=== PATIENT | female | born 1985 | race American Indian/Alaskan Native ===

== ENCOUNTER 2018-03-19 14:31 | Inpatient (IN) | payer OTHER ==
[2018-03-19] MEDS ORDERED: BRETHINE SUB-Q PRN (14:40)
[2018-03-19] MEDS ORDERED: XYLOCAINE 2% INFILTRATI ONE (14:40)
[2018-03-19] MEDS ORDERED: BRETHINE IVP PRN (14:40)
[2018-03-19] MEDS ORDERED: MINERAL OIL PO PRN (14:40)
[2018-03-19] MEDS ORDERED: NARCAN 0.4 MG/1 ML IV PRN (14:40)
[2018-03-19] MEDS ORDERED: POLYCILLIN/NS 2 GM/100 ML 2 GM/100 ML BAG IV ONE (14:40)
[2018-03-19] MEDS ORDERED: ZOFRAN IV PRN (14:40)
[2018-03-19] MEDS ORDERED: PITOCin/NS 30 UNIT/500ML 30 UNITS/500 ML BAG IV SCH (15:00)
[2018-03-19] MEDS ORDERED: PITOCin/NS 20 UNIT/1000ML DRIP 20 UNITS/1,000 ML BAG IV SCH (15:00)
[2018-03-19] MEDS ORDERED: BENADRYL PO PRN (15:19)
[2018-03-19] MEDS ORDERED: NORCO 5/325 PO PRN (15:19)
--- NOTE | 2018-03-19 15:46 | History and Physical Report ---
History of Present Illness Date of examination: 03/19/18 Date of admission: 03/19/18 14:31 Chief complaint: Intense labor pains and my water broke at 1:50 today History of present illness: Late entry to care; course complicated by Anemia, Vitamin D Def, and O Negative blood type (received Rhogam on 12/25/17). Decreased cigarette smoking throughout , +HSV II (taking Valacyclovir suppression), + Gonorrhoea (treated and FLAVIA is Negative). Past History Past Medical History: no pertinent history Past Surgical History: VESSEL SLAGMAN/uterine surgery (EAB) VESSEL SLAGMAN History: gonorrhea, herpes, trichomonas Family/Genetic History: heart disease, hypertension, cancer Social history: no significant social history, single, smoking - Obstetrical History Expected Date of Delivery: 03/18/18 Actual Gestation: 40 Week(s) 1 Day(s) : 5 Para: 2 Hx # Term Pregnancies: 2 Induced : 2 Number of Living Children: 2 #2 Infant Gender: Male year: 2,[birth year] Birthweight: 2.976 kg Method of Delivery: Vaginal Gestational age at delivery: 40 #1 Infant Gender: Male year: 2,[birth year] Birthweight: 3.43 kg Method of Delivery: Vaginal Gestational age at delivery: 41 Complications: none Medications and Allergies Allergies Allergy/AdvReac Type Severity Reaction Status Date / Time No Known Allergies Allergy Verified 02/07/16 16:27 Home Medications Medication Instructions Recorded Confirmed Last Taken Type Ketorolac [Toradol] 10 mg PO Q6H PRN #20 tablet 02/08/16 Unknown Rx Active Meds: Active Medications Acetaminophen/Hydrocodone Bitart (Palmer 5/325) 2 each PO Q6H PRN PRN Reason: Pain, Moderate (4-6) Butorphanol Tartrate (Stadol) 2 mg IV Q2H PRN PRN Reason: Pain , Severe (7-10) Diphenhydramine HCl (Benadryl) 25 mg PO Q6H PRN PRN Reason: Itching Ephedrine Sulfate (Ephedrine Sulfate) 10 mg IV Q2M PRN PRN Reason: Hypotension Ampicillin Sodium (Ampicillin/Ns 1 Gm/50 Ml) 1 gm in 50 mls @ 100 mls/hr IV Q4HR KRYSTYNA; Protocol Lactated Ringer's (Lactated Ringers) 1,000 mls @ 125 mls/hr IV DIRECT KRYSTYNA Oxytocin/Sodium Chloride (Pitocin/Ns 20 Unit/1000ml Drip) 20 units in 1,000 mls @ 125 mls/hr IV DIRECT KRYSTYNA Oxytocin/Sodium Chloride (Pitocin/Ns 30 Unit/500ml) 30 units in 500 mls @ 4 mls /hr IV TITR KRYSTYNA; Protocol Ibuprofen (Motrin) 600 mg PO Q6H KRYSTYNA Mineral Oil (Mineral Oil) 30 ml PO QHS PRN PRN Reason: Constipation Multivitamins/Iron/Calcium ( Vitamin) 1 each PO QDAY KRYSTYNA Naloxone HCl (Narcan 0.4 Mg/1 Ml) 0.1 mg IV Q2MIN PRN PRN Reason: Res Rate </= 8 or 02 SAT < 92% Ondansetron HCl (Zofran) 4 mg IV Q8H PRN PRN Reason: Nausea And Vomiting Sodium Chloride (Sodium Chloride Flush Syringe 10 Ml) 10 ml IV PRN NR Stop: 03/20/18 15:59 Terbutaline Sulfate (Brethine) 0.25 mg SUB-Q ONCE PRN PRN Reason: Hyperstimulation/Hypertonicity Terbutaline Sulfate (Brethine) 0.25 mg IVP ONCE PRN PRN Reason: Hyperstimulation/Hypertonicity Review of Systems All systems: negative - Vital Signs Vital signs: Vital Signs Pulse BP 80 137/67 03/19/18 15:05 03/19/18 15:05 Temp Pulse Resp BP Pulse Ox 80 137/67 03/19/18 15:05 03/19/18 15:05 - Physical Exam Breasts: Positive: normal Cardiovascular: Regular rate Lungs: Positive: Clear to auscultation, Normal air movement Abdomen: Positive: normal appearance, soft, normal bowel sounds Genitourinary (Female): Positive: normal external genitalia, normal perenium Vagina: Positive: normal moisture Uterus: Positive: enlarged Anus/Rectum: Positive: normal perianal skin Extremities: Positive: edema (+2) - Obstetrical FHR: category 1 Uterine Contraction Monitor Mode: External Cervical Dilatation: 3 (leaking a moderate amount of thin meconium stained fluids) Cervical Effacement Percentage: 70 station: -2 Uterine Contraction Frequency (min): 1-3 Uterine Contraction Pattern: Regular Uterine Tone Measurement Phase: Resting Uterine Contraction Intensity: Moderate Results All other labs normal. Assessment and Plan A: IUP @ 40 1/7 Weeks Category I Tracing SROM GBS Positive P: Admit to L&D per Routine Orders GBS Prophylaxis Pitocin Augmentation
[2018-03-19] MEDS ORDERED: SODIUM CHLORIDE FLUSH SYRINGE 10 ML IV NR (16:00)
[2018-03-19] MEDS ORDERED: MOTRIN PO SCH (16:00)
[2018-03-19] MEDS: LACTATED RINGERS 1,000 ML IV SCH ×2 (16:30→23:54)
[2018-03-19] MEDS: STADOL IV PRN ×3 (16:30→22:22)
[2018-03-19 16:46] LABS: Hematocrit 33.9 % (30.3-42.9); Hemoglobin 11.9 gm/dl (10.1-14.3); Mean Corpuscular HGB Conc 35 % (30-34); Mean Corpuscular Hemoglobin 32 pg (28-32); Mean Corpuscular Volume 91 fl (79-97); Platelet Count 185 K/mm3 (140-440); Red Blood Count 3.74 M/mm3 (3.65-5.03); Red Cell Distribution Width 13.4 % (13.2-15.2)
--- NOTE | 2018-03-19 19:39 | Progress Note ---
Assessment and Plan A: IUP @ 40 1/7 Weeks Category I Tracing SROM GBS Positive P: Internals X2 Continue GBS Prophylaxis Continue Pitocin Augmentation Subjective - Subjective Date of service: 03/19/18 Interval history: Late entry to care; course complicated by Anemia, Vitamin D Def, and O Negative blood type (received Rhogam on 12/25/17). Decreased cigarette smoking throughout , +HSV II (taking Valacyclovir suppression), + Gonorrhoea (treated and FLAVIA is Negative). Patient reports: loss of fluid, movement normal, contractions Objective - Vital Signs Vital Signs: Vital Signs - 12hr 03/19/18 03/19/18 03/19/18 15:05 16:00 16:58 Temperature 98.7 F Pulse Rate 80 80 Respiratory Rate Blood Pressure 137/67 139/63 03/19/18 03/19/18 03/19/18 18:11 18:16 18:29 Temperature 98.8 F Pulse Rate 85 70 Respiratory 20 Rate Blood Pressure 125/74 142/60 03/19/18 03/19/18 18:59 19:29 Temperature Pulse Rate 81 77 Respiratory Rate Blood Pressure 119/67 138/83 - Exam Breasts: normal Cardiovascular: Regular rate Lungs: Clear to auscultation, Normal air movement Abdomen: Present: normal appearance, soft, normal bowel sounds Uterus: Present: normal, firm, fundal height above umbilicus FHR: category 1 Uterine Contraction Monitor Mode: Internal Cervical Dilatation: 3 (leaking a moderate amount of thin meconium stained fluids) Cervical Effacement Percentage: 70 station: -2 Uterine Contraction Frequency (min): 2-5 Uterine Contraction Pattern: Irregular Uterine Tone Measurement Phase: Resting Uterine Contraction Intensity: Moderate Extremities: normal - Labs Labs: Abnormal Labs 03/19/18 16:21 MCHC 35 H Laboratory Results - last 24 hr 03/19/18 03/19/18 16:21 16:30 WBC 7.5 RBC 3.74 Hgb 11.9 Hct 33.9 MCV 91 MCH 32 MCHC 35 H RDW 13.4 Plt Count 185 Blood Type O NEGATIVE Antibody Screen Negative
[2018-03-19] MEDS: AMPICILLIN/NS 1 GM/50 ML 1 GM/50 ML BAG IV SCH (20:59)
[2018-03-20] MEDS: LACTATED RINGERS 1,000 ML IV SCH ×5 (00:37→11:06)
[2018-03-20] MEDS: AMPICILLIN/NS 1 GM/50 ML 1 GM/50 ML BAG IV SCH ×2 (00:38→04:38)
[2018-03-20] MEDS: STADOL IV PRN ×2 (01:19→04:44)
[2018-03-20 03:17] LABS: Hematocrit 35.2 % (30.3-42.9); Hemoglobin 11.9 gm/dl (10.1-14.3)
[2018-03-20] MEDS ORDERED: PEPCID IV ONE (06:31)
[2018-03-20] MEDS ORDERED: BICITRA PO ONE (06:31)
[2018-03-20] MEDS ORDERED: REGLAN IV ONE (06:31)
--- NOTE | 2018-03-20 06:35 | Progress Note ---
Assessment and Plan - Patient Problems (1) 40 weeks gestation of Onset Date: 03/20/18 Current Visit: Yes Status: Acute Plan to address problem: A: IUP @ 40 2/7 weeks Non-reassuring surveillance Failure to progress P: We will prepare for a primary Consent signed and anesthesia aware (2) Non-reassuring electronic monitoring tracing Onset Date: 03/20/18 Current Visit: Yes Status: Acute (3) Failure to progress in labor Onset Date: 03/20/18 Current Visit: Yes Status: Acute Subjective - Subjective Date of service: 03/20/18 Principal diagnosis: IUP @ 40 2/7 weeks Interval history: Pt is a 33 yo BF EDC 03/18/18; EGA 40 2/7 weeks admitted yesterday after SROM meconium fluid @ 1300 followed by [facility]. She was being managed by the billing typist throughout the night, and is currently on Pitocin 20 mU/m and christopher every 2 minutes. I have been consulted to evaluate her progress in labor. She is now having repetitive late decelerations, so the Pitocin is currently off, her cervix is unchanged and actually swollen, and so we had a discussion for a due to non-reassuring surveillance and failure to progress. Patient reports: loss of fluid, movement normal, contractions, no new complaints, no vaginal bleeding Objective - Vital Signs Vital Signs: Vital Signs - 12hr 03/19/18 03/19/18 03/19/18 18:59 19:29 19:59 Temperature Pulse Rate 81 77 65 Respiratory Rate Blood Pressure 119/67 138/83 132/61 03/19/18 03/19/18 03/19/18 20:29 20:59 21:30 Temperature Pulse Rate 74 84 80 Respiratory Rate Blood Pressure 138/71 136/67 142/69 03/19/18 03/19/18 03/19/18 21:59 22:22 22:30 Temperature Pulse Rate 80 82 Respiratory 18 Rate Blood Pressure 132/67 133/63 03/19/18 03/19/18 03/19/18 22:59 23:25 23:29 Temperature 97.9 F Pulse Rate 73 63 Respiratory 22 Rate Blood Pressure 127/57 136/65 03/20/18 03:27 Temperature 98.2 F Pulse Rate 75 Respiratory 20 Rate Blood Pressure 128/67 - Exam Abdomen: Present: normal appearance, soft Uterus: Present: normal FHR: category 2 Uterine Contraction Monitor Mode: External Cervical Dilatation: 3 Cervical Effacement Percentage: 50 (swollen) Uterine Contraction Pattern: Regular Uterine Tone Measurement Phase: Contraction Uterine Contraction Intensity: Strong/Firm Extremities: normal - Labs Labs: Abnormal Labs 03/19/18 16:21 MCHC 35 H Laboratory Results - last 24 hr 03/19/18 03/19/18 03/20/18 16:21 16:30 03:05 WBC 7.5 RBC 3.74 Hgb 11.9 11.9 Hct 33.9 35.2 MCV 91 MCH 32 MCHC 35 H RDW 13.4 Plt Count 185 Blood Type O NEGATIVE Antibody Screen Negative
[2018-03-20] MEDS ORDERED: ANCEF/STERILE WATER 2 GM/20 ML 2 GM/20 ML SYRINGE IV NR (07:00)
[2018-03-20] MEDS ORDERED: LACTATED RINGERS 1,000 ML IV SCH (07:00)
[2018-03-20] MEDS ORDERED: PITOCin/NS 20 UNIT/1000ML DRIP 20 UNITS/1,000 ML BAG IV SCH ×2 (07:00→12:48)
[2018-03-20] MEDS ORDERED: MORPHINE ONE (07:33)
[2018-03-20] MEDS ORDERED: WATER FOR IRRIG STERILE IR ONE (07:49)
[2018-03-20] MEDS ORDERED: NACL 0.9% IR ONE (07:49)
[2018-03-20] MEDS ORDERED: TORADOL ONE (07:58)
--- NOTE | 2018-03-20 08:31 | Operative Report ---
Operative Report Operative Report: Date of procedure: 03/20/2018 Pre-operative diagnosis: 1. Intrauterine at 40-2/7 weeks in labor 2. Non-reassuring surveillance 3. Failure to progress Post-operative diagnosis: Same Procedure name(s): Primary low transverse section Surgeon: Henry Overton MD Property Valuer: None Anesthesia: Spinal anesthesia by Dr. Ramos EBL: 800 mL Findings: A 4329 g male infant Apgars 9 at 1 minute 9 at 5 minutes. Normal uterus. Normal tubes and ovaries bilaterally. Procedure: After the patient was prepped and draped in usual sterile fashion, and after satisfactory level of epidural anesthesia was obtained, the skin knife was used to make a transverse skin incision. The incision was excised down to layer of the fascia, which was nicked in the midline and extended laterally using the Bovie cautery. The rectus muscles were dissected off the rectus fascia both superiorly and inferiorly. The rectus bellies in the midline, and the peritoneum was entered under direct visualization. The peritoneal incision was extended superiorly and inferiorly. A bladder flap was created and the bladder blade was then placed. The uterus was scored in a curvilinear linear fashion, entered in the midline revealing clear amniotic fluid. The 's head was delivered onto the surgical field, and the oropharynx and nasopharynx were bulb suctioned. The rest of the 's body was delivered, cord was doubly clamped and cut and the infant was handed to the waiting respiratory team. Cord blood wasn't obtained. The placenta was manually removed from the uterus, and the uterus removed from its normal anatomical position. After gentle uterine lavage, the incision was inspected and found to be without extensions. It was then closed in 2 layers using 0 Vicryl suture in a running interlocking fashion, the second layer imbricating the first. After good hemostasis was achieved, copious amounts or irrigation was performed, and the gutters were suctioned free of blood and blood clots. Tisseel sealant was sprayed across the uterine incision. The uterus was then returned to its normal anatomical position, and after excellent hemostasis assured, the peritoneum was re-approximated using 3-0 Vicryl suture in a running interlocking fashion, and then the rectus muscles were re-approximated using 3-0 Vicryl suture in a [id number] configuration. The fascia was then re-approximated using 0 Vicryl suture in running interlocking fashion. The subcutaneous layer was made hemostatic using Bovie cautery, the Tisseel sealant was sprayed across the fascial incision and the skin edges re- approximated using 4-0 Vicryl suture in a sub-cuticular fashion. Patient tolerated the procedure well was transported to recovery in stable condition.
[2018-03-20] MEDS ORDERED: ZOFRAN IV PRN (08:37)
[2018-03-20] MEDS ORDERED: DILAUDID IV PRN (08:37)
[2018-03-20] MEDS ORDERED: PHENERGAN PR PRN (08:37)
[2018-03-20] MEDS ORDERED: NARCAN 0.4 MG/1 ML IV PRN ×2 (08:37→12:48)
[2018-03-20] MEDS ORDERED: PHENERGAN PO PRN (08:37)
--- NOTE | 2018-03-20 08:37 | Post Anesthesia Evaluation ---
- Post Anesthesia Evaluation Patient Participated: Yes Airway Patent: Yes Stable Respiratory Function: Yes Nausea/Vomiting: No Temp > 96.8F: Yes Pain Manageable: Yes Adequeate Hydration: Yes Anesthesia Complications: No Block Receding Appropriately: Yes
--- NOTE | 2018-03-20 08:37 | Anesthesia Consultation ---
Anesthesia Consult and Med Hx Date of service: 03/20/18 - Airway Anesthetic Teeth Evaluation: Good ROM Head & Neck: Adequate Mental/Hyoid Distance: Adequate Mallampati Class: Class II Intubation Access Assessment: Good - Pulmonary Exam CTA: Yes - Cardiac Exam Cardiac Exam: No Murmur - Pre-Operative Health Status ASA Pre-Surgery Classification: ASA2 Proposed Anesthetic Plan: Epidural - Pulmonary Hx Asthma: No COPD: No Hx Pneumonia: No - Cardiovascular System Hx Hypertension: No - Central Nervous System Hx Seizures: No Hx Psychiatric Problems: No - Endocrine Hx Renal Disease: No Hx End Stage Renal Disease: No Hx Hypothyroidism: No Hx Hyperthyroidism: No - Hematic Hx Anemia: No Hx Sickle Cell Disease: No - Other Systems Hx Alcohol Use: No
[2018-03-20] MEDS ORDERED: SODIUM CHLORIDE FLUSH SYRINGE 10 ML IV NR (09:00)
[2018-03-20] MEDS ORDERED: PRENATAL VITAMIN PO SCH (10:00)
[2018-03-20] MEDS ORDERED: SODIUM CHLORIDE FLUSH SYRINGE 10 ML IV SCH (12:48)
[2018-03-20] MEDS ORDERED: LANSINOH TP PRN (12:48)
[2018-03-20] MEDS ORDERED: MYLICON PO PRN (12:48)
[2018-03-20] MEDS ORDERED: D5LR 1,000 ML IV SCH (12:48)
[2018-03-20] MEDS ORDERED: TYLENOL PO PRN (12:48)
[2018-03-20] MEDS ORDERED: SENOKOT PO PRN (12:48)
[2018-03-20] MEDS ORDERED: TUCKS PAD TP PRN (12:48)
[2018-03-20] MEDS ORDERED: TORADOL IV PRN (12:48)
[2018-03-20] MEDS: ANCEF/NS 1 GM/50 ML 1 GM/50 ML BAG IV SCH (17:33)
[2018-03-20 20:22] LABS: Hematocrit 30.1 % (30.3-42.9); Hemoglobin 10.4 gm/dl (10.1-14.3)
[2018-03-21] MEDS: PERCOCET 5/325 PO PRN ×4 (00:02→18:04)
[2018-03-21] MEDS: ANCEF/NS 1 GM/50 ML 1 GM/50 ML BAG IV SCH (02:12)
[2018-03-21] MEDS ORDERED: BOOSTRIX IM ONE (06:00)
[2018-03-21] MEDS ORDERED: M-M-R II VACCINE SUB-Q ONE (08:33)
[2018-03-21] MEDS: MOTRIN PO PRN ×2 (09:38→21:45)
--- NOTE | 2018-03-21 09:58 | Progress Note ---
Assessment and Plan A: /postop day 1 S/P low transverse section. Anemia. P: Encouraged ambulation. Supplement with iron. Subjective - Subjective Date of service: 03/21/18 Principal diagnosis: /postop day 1 S/P low transverse section Interval history: /postop day 1 S/P low transverse section. Patient is doing well. Stark catheter has been removed and she is voiding without difficulty. She is ambulating well. Passing gas and tolerating her food without nausea or vomiting. Patient reports a small amount of lochia. Patient denies headache, chest pain, cough, shortness of breath, abdominal pain , leg pain, or heavy bleeding. Patient reports: appetite normal, voiding normally, pain well controlled, flatus , ambulating normally [employer]: doing well Objective - Vital Signs Latest vital signs: Vital Signs Temp Pulse Resp BP 03/21/18 06:20 98.8 F 75 18 127/68 03/21/18 02:30 98.2 F 85 18 125/57 03/20/18 21:45 98.9 F 93 H 18 126/58 03/20/18 16:26 98.3 F 80 16 130/73 Intake and Output 03/20/18 03/21/18 03/21/18 23:59 07:59 15:59 Intake Total 410 120 Output Total 1900 650 Balance -1490 -530 Intake: IV 50 ANCEF/NS 1 GM/50 ML 1 gm 50 In 50 ml @ 100 mls/hr IV Q8H [facility] Rx#:[id number] Oral 120 Intake, Free Water 240 120 Output: Urine 1900 650 Indwelling Catheter 1900 Void 650 Other: Total, Intake Amount 120 Total, Output Amount 800 500 - Exam Cardiovascular: Present: Regular rate, Normal S1, Normal S2 Lungs: Present: Clear to auscultation Abdomen: Present: normal appearance, soft, normal bowel sounds. Absent: distention, tenderness, guarding, rigidity Uterus: Present: normal, firm, fundal height below umbilicus. Absent: bogginess , tenderness Extremities: Present: normal. Absent: tenderness, edema Incision: Present: normal, dry, intact, dressed - Labs Labs: Abnormal lab results 03/20/18 Range/Units 19:49 Hct 30.1 L (30.3-42.9) %
[2018-03-21] MEDS: FEOSOL PO SCH (12:59)
[2018-03-21] MEDS: MILK OF MAGNESIA PO PRN (18:09)
[2018-03-22] MEDS ORDERED: BOOSTRIX IM ONE (06:00)
[2018-03-22] MEDS: PERCOCET 5/325 PO PRN ×3 (06:13→21:40)
[2018-03-22] MEDS: FEOSOL PO SCH (10:28)
[2018-03-22] MEDS: MOTRIN PO PRN ×3 (10:28→21:40)
--- NOTE | 2018-03-22 10:59 | Progress Note ---
Assessment and Plan A: /postop day 2 S/P low transverse section. Anemia. P: Encouraged ambulation. Supplement with iron. Recheck blood pressure. Subjective - Subjective Date of service: 03/22/18 Principal diagnosis: /postop day 2 S/P low transverse section Interval history: /postop day 2 S/P low transverse section. Patient is doing well. Voiding without difficulty. She is ambulating well. Passing gas and tolerating her food without nausea or vomiting. Patient reports a small amount of lochia. Patient denies headache, visual disturbance, chest pain, cough, shortness of breath, nausea or vomiting, abdominal pain, leg pain, or heavy bleeding. Patient reports: appetite normal, voiding normally, pain well controlled, flatus , ambulating normally [place]: doing well Objective - Vital Signs Latest vital signs: Vital Signs Temp Pulse Resp BP BP Pulse Ox 03/22/18 08:49 98.7 F 69 20 143/76 100 03/22/18 01:12 97.9 F 64 18 123/67 03/21/18 16:51 98.6 F 72 18 133/85 Intake and Output 03/21/18 03/22/18 03/22/18 23:59 07:59 15:59 Intake Total 620 240 120 Output Total 500 Balance 120 240 120 Intake: Oral 360 120 Intake, Free Water 260 240 Output: Urine 500 Void 500 Other: Total, Intake Amount 360 120 Total, Output Amount 500 # Voids Indwelling Catheter 1 Void 3 2 1 - Exam Cardiovascular: Present: Regular rate, Normal S1, Normal S2 Lungs: Present: Clear to auscultation Abdomen: Present: normal appearance, soft, normal bowel sounds. Absent: distention, tenderness, guarding, rigidity Uterus: Present: normal, firm, fundal height below umbilicus. Absent: bogginess , tenderness Extremities: Present: normal, edema (mild bilateral pedal edema). Absent: tenderness Incision: Present: normal, dry, intact
[2018-03-22 21:47] LABS: Basophils % (Auto) 0.5 % (0.0-1.8); Eosinophils # (Auto) 0.1 K/mm3 (0.0-0.4); Eosinophils % (Auto) 1.5 % (0.0-4.3); Hematocrit 30.7 % (30.3-42.9); Hemoglobin 10.2 gm/dl (10.1-14.3); Lymphocytes % (Auto) 23.4 % (13.4-35.0); Mean Corpuscular HGB Conc 33 % (30-34); Mean Corpuscular Hemoglobin 30 pg (28-32); Mean Corpuscular Volume 91 fl (79-97); Monocytes # (Auto) 0.8 K/mm3 (0.0-0.8); Monocytes % (Auto) 9.2 % (0.0-7.3); Platelet Count 214 K/mm3 (140-440); Red Blood Count 3.35 M/mm3 (3.65-5.03); Red Cell Distribution Width 13.3 % (13.2-15.2)
[2018-03-22 22:01] LABS: Alanine Aminotransferase 14 units/L (7-56); Albumin 2.8 g/dL (3.9-5); BUN/Creatinine Ratio 10; Blood Urea Nitrogen 7 mg/dL (7-17); Calcium 8.7 mg/dL (8.4-10.2); Hemolysis Index 2
[2018-03-22 22:13] LABS: Bilirubin,Urine NEG (Negative); Blood,Urine LG (Negative); Color,Urine Red (Yellow); Mucus,Urine FEW /HPF; Urobilinogen,Urine < 2.0 mg/dL (<2.0)
[2018-03-22 22:14] LABS: RBC,Urine > 182.0 /HPF (0.0-6.0)
[2018-03-23] MEDS: PERCOCET 5/325 PO PRN ×2 (05:10→11:13)
[2018-03-23] MEDS: MOTRIN PO PRN ×2 (05:11→11:12)
--- NOTE | 2018-03-23 09:54 | Progress Note ---
Assessment and Plan - Patient Problems (1) S/P primary low transverse Current Visit: Yes Status: Acute Plan to address problem: POD 3 - stable Labile BPs - asymptomatic, PIH labs 03/22 - WNL. Consulted Dr. Pino who recommended to continue to BPs & discharge pt home on antihypertensive therapy Discharge to home today Follow up at [facility] in 1 week for Incision/Blood Pressure check Subjective - Subjective Date of service: 03/23/18 Principal diagnosis: POD #3, s/p Primary LTCS Patient reports: appetite normal, voiding normally, pain well controlled, flatus , ambulating normally, other (Denies headache, visual disturbances or RUQ pain) , no bowel movement [place]: doing well, bottle feeding Objective - Vital Signs Latest vital signs: Vital Signs Temp Pulse Resp BP BP Pulse Ox 03/23/18 04:24 98.0 F 56 L 18 124/55 97 03/22/18 23:15 60 127/64 03/22/18 20:58 98.6 F 61 18 157/68 100 03/22/18 15:49 98.6 F 67 18 141/75 03/22/18 14:56 20 03/22/18 14:55 20 Intake and Output 03/22/18 03/23/18 03/23/18 23:59 07:59 15:59 Intake Total 360 Balance 360 Intake: Intake, Free Water 360 Other: # Voids Void 2 - Exam Cardiovascular: Present: Regular rate Lungs: Present: Clear to auscultation, Normal air movement Abdomen: Present: normal appearance, soft Vulva: both: normal Uterus: Present: normal, firm, fundal height above umbilicus Extremities: Present: normal Incision: Present: normal, dry, intact - Labs Labs: Abnormal lab results 03/22/18 03/22/18 03/22/18 Range/Units 21:24 21:24 21:45 RBC 3.35 L (3.65-5.03) M/mm3 [place] % (Auto) 9.2 H (0.0-7.3) % Alkaline Phosphatase 169 H (35-129) units/L Total Protein 5.6 L (6.3-8.2) g/dL Albumin 2.8 L (3.9-5) g/dL Urine pH 8.0 H (5.0-7.0)
[2018-03-23] MEDS: FEOSOL PO SCH (10:21)
[2018-03-23] MEDS: MILK OF MAGNESIA PO PRN (10:21)
--- NOTE | 2018-03-23 13:46 | Discharge Summary ---
Providers - Providers Date of Admission: 03/19/18 14:31 Date of discharge: 03/23/18 Attending physician: STEPHANIA CANALES MD Primary care physician: STEPHANIA CANALES MD Hospitalization Reason for admission: active labor, rupture of membranes, IUP at term Delivery: Procedure: primary low transverse Episiotomy: none Laceration: none Incision: normal, dry, intact Other procedures: none complications: none Discharge diagnosis: IUP at term delivered baby: male Hospital course: Uncomplicated Condition at discharge: Stable Disposition: DC-01 TO HOME OR SELFCARE - Discharge Diagnoses (1) S/P primary low transverse Status: Acute Plan - Discharge Medications Prescriptions: Ferrous Sulfate [Feosol 325 MG tab] 325 mg PO BID #60 tablet HYDROcodone/APAP 5-325 [Hayden 5/325] 1 each PO Q6HR PRN #30 tablet PRN Reason: Pain Ibuprofen [Motrin] 800 mg PO Q8HR PRN #30 tablet PRN Reason: Moder Pain Unrelieved By Hayden Vit Calc,Iron,Folic [ Vitamins] 1 each PO DAILY #30 tablet - Provider Discharge Summary Activity: routine, no sex for 6 weeks, no heavy lifting 4 weeks, no strenuous exercise Diet: routine Instructions: routine Additional instructions: [] Smoking cessation referral if applicable(refer to patient education folder for contact #) [] Refer to [facility]'s [facility] Booklet Call your doctor immediately for: * Fever > 100.5 * Heavy vaginal bleeding ( >1 pad per hour) * Severe persistent headache * Shortness of breath * Reddened, hot, painful area to leg or breast * Drainage or odor from incision. * Keep incision clean and dry at all times and follow doctor's instructions regarding bathing/showering - Follow up plan Follow up: STEPHANIA CANALES MD [Primary Care Provider] - 7 Days (Follow up at [facility] in 1 week for blood pressure and incision check)
[2018-03-23 14:06] VITALS: BP 141/68
== END 2018-03-23 17:20 | disposition home or self-care (01) | DRG 765 ==
LOC: LD 14:31 → OB 03-20 10:15
PROVIDERS: ADMIT Obstetrics & Gynecology; ATTEND Obstetrics & Gynecology
PROC: 10D00Z1 Extraction of Products of Conception, Low, Open Approach (ICD-10-PCS; principal; 2018-03-20)
PROC: 3E0234Z Introduction of Serum, Toxoid and Vaccine into Muscle, Percutaneous Approach (ICD-10-PCS; 2018-03-22)
PROC: 3E0334Z Introduction of Serum, Toxoid and Vaccine into Peripheral Vein, Percutaneous Approach (ICD-10-PCS; 2018-03-22)
DX: O76 Abnormality in fetal heart rate and rhythm complicating labor and delivery (principal); O98.52 Other viral diseases complicating childbirth; Z3A.40 40 weeks gestation of pregnancy; Z37.0 Single live birth; Z23 Encounter for immunization; F17.210 Nicotine dependence, cigarettes, uncomplicated; O99.334 Smoking (tobacco) complicating childbirth; Z82.49 Family history of ischemic heart disease and other diseases of the circulatory system; Z80.9 Family history of malignant neoplasm, unspecified; O99.824 Streptococcus B carrier state complicating childbirth; O77.0 Labor and delivery complicated by meconium in amniotic fluid; O62.0 Primary inadequate contractions; O99.02 Anemia complicating childbirth; D64.9 Anemia, unspecified; E55.9 Vitamin D deficiency, unspecified; O75.89 Other specified complications of labor and delivery; O26.893 Other specified pregnancy related conditions, third trimester; Z67.41 Type O blood, Rh negative; B00.9 Herpesviral infection, unspecified; Z79.899 Other long term (current) drug therapy
CPT/HCPCS: 36415; 80053; 81001; 85014; 85018; 85025; 85027; 85461; 86592; 86850; 86900; 86901; 90471; 90715; 99211; C9250; G0463; J0290; J0595; J0690; J1885; J2270; J2590; J2765; J2790; J7120; J7121